=== PATIENT | male | born 1990 | race Caucasian/White ===

== ENCOUNTER 2021-04-23 09:06 | Emergency (ER) | payer BC, OTHER ==
[~2021-04-23] VITALS: Ht 170.2 cm; Wt 77.7 kg
--- NOTE | 2021-04-23 10:28 | NUR ---
PT. IS A & O X WITH A GCS OF 15. HIS SKIN IS PINK, WARM AND DRY. LUNGS ARE CTA. MM ARE MOIST WITH PULSES +2 THROUGHOUT. PT.'S ABD. IS SOFT, NON-TENDER WITH BS + X 4 QUADS. PT. REPORTS HAVING RIGHT FLANK PAIN AND DYSURIA X 5 DAYS. VSS. PT.'S LABS WERE DRAWN. PT. IS AWARE THAT A UA IS NEEDED.
[2021-04-23] MEDS ORDERED: SODIUM CHLORIDE FLUSH 10ML SYR IVF ONE (10:30)
[2021-04-23] MEDS ORDERED: SODIUM CHLORIDE 0.9% 1,000ML IV ONE (10:30)
[2021-04-23] MEDS ORDERED: MORPHINE SULFATE 4 MG/ML, 1ML IVPush PRN (10:30)
[2021-04-23] MEDS ORDERED: ONDANSETRON 2MG/ML, 2ML IVPush ONE (10:30)
[2021-04-23 10:42] LABS: BASOPHILS % (AUTO) 1 % (0-1); EOSINOPHILS % (AUTO) 1 % (1-7); LYMPHOCYTES % (AUTO) 37 % (22-44); MEAN CORPUSCULAR HEMOGLOBIN 29.9 pg (27.5-34.5); MEAN CORPUSCULAR HGB CONC 34.6 g/dL (33.2-36.2); MEAN PLATELET VOLUME 7.4 fL (7.4-10.4); MONOCYTES % (AUTO) 8 % (2-9); NEUTROPHILS % (AUTO) 54 % (42-75); PLATELET COUNT 276 x10^3/uL (130-400); RED BLOOD COUNT 5.34 x10^6/uL (4.38-5.82); RED CELL DISTRIBUTION WIDTH 13.4 % (9.4-14.8)
--- NOTE | 2021-04-23 10:43 | NUR ---
PT. DECLINED PAIN MEDS AT THIS TIME.
--- NOTE | 2021-04-23 10:45 | NUR ---
NS BOLUS IS INFUSING.
[2021-04-23 10:55] LABS: ALANINE AMINOTRANSFERASE 21 U/L (12-78); ANION GAP 5 mmol/L (5-15); CALCIUM 8.9 mg/dL (8.5-10.1); CHLORIDE 109 mmol/L (98-107); CREATININE 1.39 mg/dL (0.7-1.3)
[2021-04-23 10:57] LABS: ALKALINE PHOSPHATASE 60 U/L (45-117); BILIRUBIN,TOTAL 0.5 mg/dL (0.2-1.0)
[2021-04-23 11:03] LABS: MICROSCOPIC NOT IND
--- NOTE | 2021-04-23 12:14 | NUR ---
PT.'S VITALS ARE STABLE. HE STATES HE DOESN'T NEED ANYTHING FOR PAIN.
--- NOTE | 2021-04-23 13:37 | NUR ---
PT. HAS NO CONCERNS. NOTIFIED OF RECHECK. PT.'S VITALS ARE STABLE.
--- NOTE | 2021-04-23 14:01 | NUR ---
PT. REPORTS RELIEF FROM PAIN MEDS.
--- NOTE | 2021-04-23 14:38 | NUR ---
PT. WAS GIVEN DISCHARGE INSTRUCTIONS AND A SCRIPT WITH UNDERSTANDING VERBALIZED ALONG WITH WILLINGNESS TO COMPLY. PT. WAS AMBULATORY TO THE DISCHARGE DESK. VSS.
[2021-04-23 14:42] VITALS: BP 104/66
== END 2021-04-23 14:44 | disposition home or self-care (01) ==
LOC: ED 12:53
DX: N23 Unspecified renal colic (principal)
CPT/HCPCS: 36415; 74176; 80053; 81003; 85025; 96360; 99285; J7030